=== PATIENT | male | born 1990 ===

== ENCOUNTER 2016-06-24 19:54 | Emergency (ER) | payer BC, OTHER ==
--- NOTE | 2016-06-24 20:13 | ED PDOC ---
Upper Extremity Pain/Injury Time Seen by Provider: 06/24/16 20:12 Chief Complaint (Provider): hand injury History Per: Patient Additional Complaint(s): Right hand dominant male presents to ED with fish hook stuck in his right hand. Injury occurred just prior to arrival, patient came right to ED. He is not sure of last tetanus. Patient has moderate pain to affected area, denies any associated numbness or tingling. Past Medical History Reviewed: Historical Data, Nursing Documentation, Vital Signs - Medical History PMH: CAD (WPW) - Surgical History Other surgeries: cardiac ablation for WPW - Family History Family History: States: Diabetes - Living Arrangements Living Arrangements: With Family - Social History Current smoker - smoking cessation education provided: No Alcohol: None Drugs: Denies - Immunization History Hx Tetanus Toxoid Vaccination: No (not sure of last tetanus) - Home Medications Home Medications: Ambulatory Orders Medication Instructions Recorded Clindamycin [Cleocin] 300 mg PO TID #21 cap 06/24/16 traMADol [Ultram] 50 mg PO TID PRN #15 tab 06/24/16 - Allergies Allergies/Adverse Reactions: Allergies Allergy/AdvReac Type Severity Reaction Status Date / Time No Known Allergies Allergy Verified 10/12/13 17:56 Review of Systems ROS Statement: Except As Marked, All Systems Reviewed And Found Negative Musculoskeletal: Positive for: Other (right hand FB) Physical Exam - Reviewed Nursing Documentation Reviewed: Yes Vital Signs Reviewed: Yes - Physical Exam Appears: Positive for: Well, Non-toxic, No Acute Distress Eye Exam: Positive for: Normal appearance Neck: Positive for: Painless ROM Extremity: Positive for: Other (fish hook is noted to interdigital space between first and second digits superficially, entry and exit wounds are close to skin surface, no active bleeding, normal cap refill) Neurologic/Psych: Positive for: Alert, Oriented - ECG O2 Sat by Pulse Oximetry: 99 Pulse Ox Interpretation: Normal - Other Rad Right hand x-ray X-Ray: Interpreted by Me, Viewed By Me X-Ray Interpretation: Done after FB removal, no fx, no dis, no retained FB Medical Decision Making Medical Decision Makin26 year old with FB to right hand Plan: 1 gram ancef IV Tetanus booster X-ray right hand FB removal Procedure Note: Interdigital space between right first and second digits was anesthetized with approximately 12 mL of 1% lidocaine without epinephrine, good anesthesia was achieved, bold cutter was used to cut extra fish hooks from portion that punctured hand. Using forceps, barbed end of fish hook was pushed through skin surface and thermal cutter helper used to cut barbed end off. Remainder of alexis hook was removed without difficulty. Puncture wounds were then irrigated with NS and betadine. Bactiracin and sterile gauze applied. Procedure was tolerated well by patient with no complications. Rx tramadol and clindamycin given. Patient was referred to hand specialist for follow up. Disposition - Clinical Impression Clinical Impression: Fish hook injury of hand, Requires a booster tetanus - Patient ED Disposition Is Patient to be Admitted: No Counseled Patient/Family Regarding: Studies Performed, Diagnosis, Need For Followup, Rx Given - Disposition Referrals: Tan You MD [Staff Provider] - Disposition: Routine/Home Disposition Time: 21:37 Condition: STABLE Additional Instructions: Keep wound clean and dry. Take rx meds as directed as needed for pain. Follow up with hand specialist or primary care doctor in 2-3 days. Return to ED at any time if acutely worse. Prescriptions: Clindamycin [Cleocin] 300 mg PO TID #21 cap traMADol [Ultram] 50 mg PO TID PRN #15 tab PRN Reason: Pain, Moderate (4-7) Instructions: Soft Tissue Foreign Body (ED)
[2016-06-24 20:22] VITALS: BP 148/94; PULSE 68; RESP 18; TEMP 98.2; O2SAT 99
[2016-06-24] MEDS ORDERED: Lidocaine 1% Inj (20ml) ONE (20:26)
[2016-06-24] MEDS ORDERED: TDAP Vaccine 0.5 mL Syr IM ONE (20:55)
[2016-06-24] MEDS ORDERED: Bacitracin 500 Units/gm Oint Foilpak UD ONE (22:43)
--- NOTE | 2016-06-25 09:29 | RAD ---
PROCEDURE: Right Hand Radiographs. HISTORY: Trauma COMPARISON: None. FINDINGS: BONES: Bone alignment and mineralization are normal. There is no acute fracture or bone destruction. JOINTS: Normal. SOFT TISSUES: Normal. OTHER FINDINGS: None. IMPRESSION: No acute fracture or dislocation.
== END 2016-06-24 23:06 | disposition home or self-care (01) ==
LOC: H.ER 19:54
DX: S60.459A Superficial foreign body of unspecified finger, initial encounter (principal); W22.8XXA Striking against or struck by other objects, initial encounter; Y92.89 Other specified places as the place of occurrence of the external cause